=== PATIENT | male | born 1950 | race Caucasian/White ===

== ENCOUNTER → 2016-12-14 | Outpatient (CLI) | payer MEDICARE, BC ==
[~2016-12-14] MED LIST: DIAZ10TA4 PO; GABA-586 PO; LISI-334 PO; ORLI60CA2 PO; PROP20TA PO; QUET400T4 PO
[2016-12-14 08:50] LABS: BASO # 0.1 x10^3/uL (0.0-0.2); BASO % 0 % (0-3); EOS # 0.2 x10^3/uL (0.0-0.7); EOS % 1 % (0-3); HEMATOCRIT 43.5 % (39.0-53.0); HEMOGLOBIN 14.9 g/dL (13.0-17.5); LYMPH # 5.2 x10^3/uL (1.0-4.8); LYMPH % 37 % (24-48); MEAN CORPUSCULAR HEMOGLOBIN 31 pg (25-35); MEAN CORPUSCULAR HGB CONC 34 g/dL (31-37); MEAN CORPUSCULAR VOLUME 91 fL (79-100); MONO # 0.9 x10^3/uL (0.0-1.1); MONO % 6 % (0-9); NEUT # 7.7 x10^3uL (1.8-7.7); NEUT % 55 % (31-73); PLATELET COUNT 126 x10^3/uL (140-400); RED BLOOD COUNT 4.79 x10^6/uL (4.30-5.70); RED CELL DISTRIBUTION WIDTH 13.4 % (11.5-14.5); WHITE BLOOD COUNT 13.9 x10^3/uL (4.0-11.0)
[2016-12-14 08:52] LABS: ALBUMIN 3.8 g/dL (3.4-5.0); CREATININE 2.1 mg/dL (0.7-1.3); GFR 31.7; PHOSPHORUS 3.2 mg/dL (2.6-4.7); POTASSIUM 3.9 mmol/L (3.5-5.1)
[2016-12-14 19:12] LABS: CALCIUM PTH 9.2 mg/dL (8.6-10.2); CREATININE PTH 2.03 mg/dL (0.76-1.27); PTH INTACT 30 pg/mL (15-65)
== END | disposition home or self-care (01) ==
LOC: LAB 08:04
PROVIDERS: ATTEND Internal Medicine Nephrology
DX: I12.9 Hypertensive chronic kidney disease with stage 1 through stage 4 chronic kidney disease, or unspecified chronic kidney disease (principal); N18.4 Chronic kidney disease, stage 4 (severe); Z90.5 Acquired absence of kidney; Z68.30 Body mass index [BMI] 30.0-30.9, adult
CPT/HCPCS: 36415; 80069; 83970; 85025

== ENCOUNTER → 2017-06-19 | Outpatient (CLI) | payer MEDICARE, BC ==
[2017-06-19 09:45] LABS: BASO % 0 % (0-3); EOS # 0.1 x10^3/uL (0.0-0.7); EOS % 1 % (0-3); HEMATOCRIT 42.5 % (39.0-53.0); HEMOGLOBIN 15.5 g/dL (13.0-17.5); LYMPH # 4.7 x10^3/uL (1.0-4.8); LYMPH % 43 % (24-48); MEAN CORPUSCULAR HEMOGLOBIN 33 pg (25-35); MEAN CORPUSCULAR HGB CONC 36 g/dL (31-37); MEAN CORPUSCULAR VOLUME 90 fL (79-100); MONO # 0.6 x10^3/uL (0.0-1.1); MONO % 6 % (0-9); NEUT # 5.6 x10^3uL (1.8-7.7); NEUT % 51 % (31-73); PLATELET COUNT 142 x10^3/uL (140-400); RED BLOOD COUNT 4.75 x10^6/uL (4.30-5.70); RED CELL DISTRIBUTION WIDTH 13.9 % (11.5-14.5)
[2017-06-19 10:00] LABS: ALBUMIN 3.7 g/dL (3.4-5.0); CALCIUM 8.6 mg/dL (8.5-10.1)
[2017-06-19 10:01] LABS: GFR 28.5; MAGNESIUM 1.8 mg/dL (1.8-2.4); PHOSPHORUS 3.7 mg/dL (2.6-4.7); POTASSIUM 4.2 mmol/L (3.5-5.1); URIC ACID 8.1 mg/dL (3.5-7.2)
[2017-06-19 10:03] LABS: CREATININE 2.3 mg/dL (0.7-1.3)
[2017-06-20 16:09] LABS: CALCIUM PTH 9.3 mg/dL (8.6-10.2); CREATININE PTH 2.14 mg/dL (0.76-1.27); PTH INTACT 26 pg/mL (15-65)
== END | disposition home or self-care (01) ==
LOC: LAB 08:58
PROVIDERS: ATTEND Internal Medicine Nephrology
DX: I12.9 Hypertensive chronic kidney disease with stage 1 through stage 4 chronic kidney disease, or unspecified chronic kidney disease (principal); N18.3 Chronic kidney disease, stage 3 (moderate); Z90.5 Acquired absence of kidney
CPT/HCPCS: 36415; 80069; 83735; 83970; 84550; 85025

== ENCOUNTER → 2018-06-20 | Outpatient (CLI) | payer MEDICARE, BC ==
[2018-06-20 08:34] LABS: BASO % 0 % (0-3); EOS # 0.2 x10^3/uL (0.0-0.7); EOS % 1 % (0-3); HEMATOCRIT 45.6 % (39.0-53.0); HEMOGLOBIN 15.7 g/dL (13.0-17.5); LYMPH # 4.7 x10^3/uL (1.0-4.8); LYMPH % 33 % (24-48); MEAN CORPUSCULAR HEMOGLOBIN 31 pg (25-35); MEAN CORPUSCULAR HGB CONC 34 g/dL (31-37); MEAN CORPUSCULAR VOLUME 91 fL (79-100); MONO # 0.8 x10^3/uL (0.0-1.1); MONO % 6 % (0-9); NEUT # 8.3 x10^3uL (1.8-7.7); NEUT % 59 % (31-73); PLATELET COUNT 149 x10^3/uL (140-400); RED CELL DISTRIBUTION WIDTH 13.3 % (11.5-14.5)
[2018-06-20 08:48] LABS: ALBUMIN 3.9 g/dL (3.4-5.0); CALCIUM 9.8 mg/dL (8.5-10.1); CREATININE 2.4 mg/dL (0.7-1.3); GFR 27.1; PHOSPHORUS 3.5 mg/dL (2.6-4.7); POTASSIUM 4.1 mmol/L (3.5-5.1)
[2018-06-20 23:09] LABS: CALCIUM PTH 9.8 mg/dL (8.6-10.2); CREATININE PTH 2.34 mg/dL (0.76-1.27); PTH INTACT 15 pg/mL (15-65)
== END | disposition home or self-care (01) ==
LOC: LAB 08:01
PROVIDERS: ATTEND Internal Medicine Nephrology
DX: I12.9 Hypertensive chronic kidney disease with stage 1 through stage 4 chronic kidney disease, or unspecified chronic kidney disease (principal); N18.4 Chronic kidney disease, stage 4 (severe); Z90.5 Acquired absence of kidney; Z68.30 Body mass index [BMI] 30.0-30.9, adult
CPT/HCPCS: 36415; 80069; 83970; 85025

== ENCOUNTER → 2018-12-23 | Outpatient (CLI) | payer MEDICARE, BC ==
[2018-12-23 08:51] LABS: BASO % 0 % (0-3); EOS # 0.1 x10^3/uL (0.0-0.7); EOS % 1 % (0-3); HEMATOCRIT 40.7 % (39.0-53.0); LYMPH # 3.3 x10^3/uL (1.0-4.8); LYMPH % 37 % (24-48); MEAN CORPUSCULAR HEMOGLOBIN 32 pg (25-35); MEAN CORPUSCULAR HGB CONC 35 g/dL (31-37); MEAN CORPUSCULAR VOLUME 93 fL (79-100); MONO # 0.6 x10^3/uL (0.0-1.1); MONO % 7 % (0-9); NEUT # 4.7 x10^3uL (1.8-7.7); NEUT % 54 % (31-73); PLATELET COUNT 130 x10^3/uL (140-400); RED BLOOD COUNT 4.37 x10^6/uL (4.30-5.70); RED CELL DISTRIBUTION WIDTH 13.7 % (11.5-14.5); WHITE BLOOD COUNT 8.8 x10^3/uL (4.0-11.0)
[2018-12-23 09:08] LABS: ALBUMIN 3.6 g/dL (3.4-5.0); CALCIUM 8.5 mg/dL (8.5-10.1); CREATININE 2.4 mg/dL (0.7-1.3)
[2018-12-23 09:09] LABS: PHOSPHORUS 4.2 mg/dL (2.6-4.7)
[2018-12-24 05:08] LABS: CREATININE PTH 2.06 mg/dL (0.76-1.27); PTH INTACT 29 pg/mL (15-65)
== END | disposition home or self-care (01) ==
LOC: LAB 07:49
PROVIDERS: ATTEND Internal Medicine Nephrology
DX: I12.9 Hypertensive chronic kidney disease with stage 1 through stage 4 chronic kidney disease, or unspecified chronic kidney disease (principal); N18.4 Chronic kidney disease, stage 4 (severe); Z90.5 Acquired absence of kidney; Z68.30 Body mass index [BMI] 30.0-30.9, adult
CPT/HCPCS: 36415; 80069; 83970; 85025

== ENCOUNTER 2019-01-03 15:03 | Emergency (ER) | payer MEDICARE, BC ==
[~2019-01-03] VITALS: Ht 177.8 cm; Wt 97.4 kg
[~2019-01-03 15:03] MED LIST changes: +EPINEPHrine SYRINGE 1 MG/10 ML SYRINGE ONE; +SODIUM BICARB ADULT 8.4% 50 MEQ/50 ML DISP.SYRIN. ONE
--- NOTE | 2019-01-03 15:24 | PHYS DOC ---
Past History Past Medical History: Cancer, Other Additional Past Medical Histor: end-stage renal disease Adult General HPI HPI Patient is a 68-year-old male brought in by EMS after an unwitnessed cardiac arrest. He was last seen approximately an hour prior to them being called. Faby buchanan has a known history of cancer and end-stage renal disease. EMS intubated the patient utilizing a 5.5 ET tube. They noted vomitus in the patient's mouth. After finding out the patient had been using narcotics, they gave intranasal Narcan, established an intraosseous line, and gave additional Narcan through that. CPR chest compressions were performed. They found the patient was in pulseless electrical activity. They gave a total of 5 mg of epinephrine while on scene and in route. History is limited from the patient due to his altered mental status as well as the critical care being performed.[] Review of Systems Review of Systems Unable to obtain due to critical care being performed and condition of patient b eing unresponsive Physical Exam Physical Exam Constitutional: Unresponsive[] HENT: . 5.5 ET tube in the oral pharynx, moist mucous membranes [] Eyes: Pupils fixed, dilated. [] Neck: Supple, trachea midline [] Cardiovascular: No spontaneous heartbeat[] Lungs & Thorax: Bilateral breath sounds with ventilation[] Abdomen: No masses [] EKG EKG [] Radiology/Procedures Radiology/Procedures [] Course & Med Decision Making Course & Med Decision Making Pertinent Labs and Imaging studies reviewed. (See chart for details) ED course: Patient arrived, was placed in bed, and CPR was continued. Bicarbonate was administered due to patient's history of end-stage renal disease and concern for possible hyperkalemia. Additional epinephrine was administered. There was no cardiac activity on bedside ultrasound. Given the prolonged down time, patient was pronounced at 1510. Critical care time: Less than 30 minutes for bedside care, and discussion with family[] Dragon Disclaimer Dragon Disclaimer This electronic medical record was generated, in whole or in part, using a voice recognition dictation system. Departure Departure: Impression: Primary Impression: Cardiopulmonary arrest Additional Impressions: End stage renal disease Cancer Disposition: 20 Condition: Referrals: PCP,UNKNOWN (PCP) Problem Qualifiers PRETTY MCKOY DO Jan 03, 2019 15:24
== END 2019-01-03 15:10 | disposition expired ==
LOC: ER 15:09 → EDBD 15:09 → MERGE 15:09 → ER 15:10
DX: I46.9 Cardiac arrest, cause unspecified (principal); N18.6 End stage renal disease; Z85.9 Personal history of malignant neoplasm, unspecified
CPT/HCPCS: 92950; 99285; J0171